=== PATIENT | female | born 1975 | race Caucasian/White ===

== ENCOUNTER → 2017-01-16 14:10 | Outpatient (CLI) | payer BC ==
[2013-11-24 06:20] VITALS: BMI 25.8
[~2017-01-16 14:10] MED LIST: BENTYL10 MG; BUMEX2 MG; CARAFATE1 G; FORTAMET1000 MG/BO; K-DUR20 MEQ OR; K-TAB10 MEQ PO; MAXZIDE-25 MG T1 TAB PO; METOPROLOL TAR100 M1 PO; METOPROLOL TAR100 MG PO; NORCO 5/325 TAB1 TA1 OR; ULTRAM50 MG PO; VITAMIN B-1000 MCG/M IM
== END | disposition home or self-care (01) ==
LOC: D.RAD 09:30
DX: M25.512 Pain in left shoulder (principal)

== ENCOUNTER → 2017-03-17 14:24 | Outpatient (CLI) | payer BC ==
[2013-11-24 06:20] VITALS: BMI 25.8
[2017-03-17 17:20] LABS: ALBUMIN 4.1 g/dL (3.4-5.0); ANION GAP 13.4 mmol/L (8-16); BILIRUBIN - TOTAL 0.73 mg/dL (0.2-1.3); CALCIUM 8.9 mg/dL (8.5-10.1); CARBON DIOXIDE 27.3 mmol/L (21.0-32.0); CREATININE - SERUM 1.5 mg/dL (0.6-1.3); POTASSIUM - SERUM 4.7 mmol/L (3.5-5.1)
[2017-03-17 17:36] LABS: PROTEIN - SERUM 7.9 g/dL (6.4-8.2)
== END | disposition home or self-care (01) ==
LOC: D.LAB 14:24
PROVIDERS: Surgery
DX: I10 Essential (primary) hypertension (principal); R60.9 Edema, unspecified; R06.02 Shortness of breath

== ENCOUNTER → 2017-03-25 12:28 | Outpatient (CLI) | payer BC ==
[2013-11-24 06:20] VITALS: BMI 25.8
== END | disposition home or self-care (01) ==
LOC: D.CT 12:28
DX: R31.9 Hematuria, unspecified (principal)

== ENCOUNTER → 2017-04-07 14:15 | Outpatient (CLI) | payer BC ==
[2013-11-24 06:20] VITALS: BMI 25.8
[~2017-04-07 14:15] MED LIST changes: +ALDACTONE50 MG PO; +FOCALIN5 MG PO; +GLUCOPHAGE1000 MG PO; +TENORMIN100 MG PO
== END | disposition home or self-care (01) ==
LOC: D.MAMMO 08:00
DX: Z12.31 Encounter for screening mammogram for malignant neoplasm of breast (principal)

== ENCOUNTER → 2017-04-24 12:07 | Outpatient (CLI) | payer BC ==
[2013-11-24 06:20] VITALS: BMI 25.8
[2017-04-24 13:23] LABS: ANION GAP 14.8 mmol/L (8-16); CALCIUM 9.5 mg/dL (8.5-10.1); CARBON DIOXIDE 23.6 mmol/L (21.0-32.0); CREATININE - SERUM 1.4 mg/dL (0.6-1.3); POTASSIUM - SERUM 4.4 mmol/L (3.5-5.1); THYROID STIMULATING HORMONE 1.13 uIU/mL (0.36-3.74)
== END | disposition home or self-care (01) ==
LOC: D.LAB 12:07
PROVIDERS: Family Medicine
DX: R60.0 Localized edema (principal)

== ENCOUNTER 2017-05-08 09:59 | Day surgery (SDC) | payer BC ==
[~2017-05-08 09:59] MED LIST changes: -ALDACTONE50 MG PO; -FOCALIN5 MG PO; -GLUCOPHAGE1000 MG PO; -TENORMIN100 MG PO
[2017-05-08 11:24] LABS: BASOPHILS 0.1 % (0-2); EOSINOPHILS 1.2 % (0-7); HEMATOCRIT 43.6 % (36.0-48.0); HEMOGLOBIN 14.3 g/dL (12-16); IMMATURE GRANULOCYTES 0.4 % (0-5); MCH 30.7 pg (26.0-34.0); MCHC 32.8 g/dL (31.0-37.0); MCV 93.6 fL (80.0-100.0); MEAN PLATELET VOLUME 10.3 fL (7.4-10.4); MONOCYTES 9.6 % (2-11); NEUTROPHILS 68.7 % (40-80); PLATELET COUNT 311 10x3/uL (130-400); RBC 4.66 10x6/uL (4.00-5.40); RDW 13.5 % (11.5-14.5)
[2017-05-08 11:33] LABS: ANION GAP 8.9 mmol/L (8-16); CALCIUM 9.4 mg/dL (8.5-10.1); CARBON DIOXIDE 29.2 mmol/L (21.0-32.0); CREATININE - SERUM 1.2 mg/dL (0.6-1.3); POTASSIUM - SERUM 4.1 mmol/L (3.5-5.1)
[2017-05-08] MEDS ORDERED: TENORMIN100 MG PO (11:33)
[2017-05-08] MEDS ORDERED: ALDACTONE50 MG PO (11:34)
[2017-05-08] MEDS ORDERED: GLUCOPHAGE1000 MG PO (11:34)
[2017-05-08] MEDS ORDERED: FOCALIN5 MG PO (11:34)
[2017-05-08 11:38] VITALS: BMI 25.3
--- NOTE | 2017-05-27 09:37 | OP ---
PATIENT NAME: SHANIQUE WARREN MEDICAL RECORD: [id number] :71 LOCATION:D.[facility] ADMISSION DATE: SURGEON: JUSTIN MILLER MD DATE OF OPERATION: 05/08/2017 SURGEON: Justin Miller MD ANESTHESIA: MAC by Colt Garcia CRNA. PREOPERATIVE DIAGNOSIS: Microscopic hematuria. POSTOPERATIVE DIAGNOSIS: Microscopic hematuria. PROCEDURE: Cystoscopy. FINDINGS: Single ureteral orifices bilaterally. Diffuse bladder inflammation, but no bladder tumors seen. BLOOD LOSS: None. CLINICAL HISTORY: This is a 41-year-old female, who has a history of diabetes mellitus type 2 and she is a former smoker. She was found to have microscopic hematuria. She had an outpatient CT scan, which showed no abnormalities of the kidney. She comes today to have cystoscopy done. She has allergies to KEFLEX, PENICILLIN, and HIBICLENS. She was given Levaquin IV cyber incident responder to the OR. DESCRIPTION OF PROCEDURE: The patient was given IV sedation. She was then placed in the dorsal lithotomy position and prepped and draped. A 17-Syriac cystoscope with 30-degree lens was used for visualization. Findings are as outlined above. No tumors were seen. The bladder was then emptied through the scope sheath and the scope was removed. Uro-Jet lidocaine jelly was inserted into the urethra afterwards. TRANSINT:[id number] Voice Confirmation ID: [id number] DOCUMENT ID: [id number] 05/27/2017 Edited clinical history per agusto Mcelroy. JUSTIN MILLER MD at 0937 CC: [id number] DICTATION DATE: 05/08/17 1242 KETTLE SKIMMER: 05/08/17 1251 [facility] 05/08/[address] [address]
== END 2017-05-08 13:44 | disposition home or self-care (01) ==
LOC: D.OPS 09:59
PROVIDERS: Anesthesiology
DX: R31.29 Other microscopic hematuria (principal); I10 Essential (primary) hypertension; E11.9 Type 2 diabetes mellitus without complications; Z01.812 Encounter for preprocedural laboratory examination

== ENCOUNTER → 2017-07-16 14:32 | Outpatient (CLI) | payer BC ==
[~2017-07-16 14:32] MED LIST changes: +ALDACTONE50 MG PO; +FOCALIN5 MG PO; +GLUCOPHAGE1000 MG PO; +TENORMIN100 MG PO
[2017-07-16 17:04] LABS: COLOR YELLOW (YELLOW)
[2017-07-16 17:05] LABS: APPEARANCE CLEAR (CLEAR); BILIRUBIN NEGATIVE (NEGATIVE); GLUCOSE NEGATIVE (NEGATIVE); KETONE NEGATIVE (NEGATIVE); NITRITE NEGATIVE (NEGATIVE); PROTEIN NEGATIVE (NEGATIVE); UROBILINOGEN NORMAL (NORMAL)
[2017-07-16 17:07] LABS: BACTERIA FEW /hpf (NONE SEEN); EPITHELIAL CELLS OCC /hpf (0-5)
== END | disposition home or self-care (01) ==
LOC: D.LAB 14:32
PROVIDERS: Family Medicine
DX: R30.0 Dysuria (principal)

== ENCOUNTER 2017-08-01 01:16 | Emergency (ER) | payer BC ==
[2017-08-01 02:19] LABS: BASOPHILS 0.3 % (0-2); EOSINOPHILS 0.8 % (0-7); HEMATOCRIT 42.6 % (36.0-48.0); HEMOGLOBIN 14.2 g/dL (12-16); IMMATURE GRANULOCYTES 0.8 % (0-5); LYMPHOCYTES 22.7 % (15-50); MCH 30.8 pg (26.0-34.0); MCHC 33.3 g/dL (31.0-37.0); MCV 92.4 fL (80.0-100.0); MEAN PLATELET VOLUME 10.7 fL (7.4-10.4); MONOCYTES 8.2 % (2-11); NEUTROPHILS 67.2 % (40-80); PLATELET COUNT 333 10x3/uL (130-400); RBC 4.61 10x6/uL (4.00-5.40); RDW 13.9 % (11.5-14.5); WBC 11.6 10x3/uL (4.8-10.8)
[2017-08-01 02:47] LABS: ANION GAP 16.3 mmol/L (8-16); BILIRUBIN - TOTAL 0.8 mg/dL (0.2-1.3); CALCIUM 9.2 mg/dL (8.5-10.1); CARBON DIOXIDE 24.7 mmol/L (21.0-32.0); CREATININE - SERUM 1.6 mg/dL (0.6-1.3); MAGNESIUM - SERUM 1.7 mg/dL (1.8-2.4); PROTEIN - SERUM 7.6 g/dL (6.4-8.2); THYROID STIMULATING HORMONE 1.52 uIU/mL (0.36-3.74)
== END 2017-08-01 04:17 | disposition home or self-care (01) ==
LOC: D.ER 01:16
PROVIDERS: Emergency Medicine
DX: R10.9 Unspecified abdominal pain (principal); E86.0 Dehydration; N17.9 Acute kidney failure, unspecified; E11.9 Type 2 diabetes mellitus without complications; I10 Essential (primary) hypertension

== ENCOUNTER 2017-08-13 06:28 | Day surgery (SDC) | payer BC ==
[2017-08-12 13:40] LABS: HCG URINE NEGATIVE (NEGATIVE)
[2017-08-12 13:46] LABS: BASOPHILS 0.4 % (0-2); EOSINOPHILS 0.6 % (0-7); HEMOGLOBIN 14.6 g/dL (12-16); IMMATURE GRANULOCYTES 0.7 % (0-5); LYMPHOCYTES 20.8 % (15-50); MCH 30.8 pg (26.0-34.0); MCHC 33.2 g/dL (31.0-37.0); MCV 92.8 fL (80.0-100.0); MEAN PLATELET VOLUME 10.6 fL (7.4-10.4); MONOCYTES 7.7 % (2-11); NEUTROPHILS 69.8 % (40-80); PLATELET COUNT 306 10x3/uL (130-400); RBC 4.74 10x6/uL (4.00-5.40); RDW 13.7 % (11.5-14.5); WBC 10.2 10x3/uL (4.8-10.8)
[2017-08-12 13:58] LABS: ANION GAP 15.4 mmol/L (8-16); CALCIUM 9.4 mg/dL (8.5-10.1); CARBON DIOXIDE 27.5 mmol/L (21.0-32.0); CREATININE - SERUM 1.4 mg/dL (0.6-1.3); POTASSIUM - SERUM 3.9 mmol/L (3.5-5.1)
[~2017-08-13] VITALS: Ht 165.1 cm; Wt 71.7 kg
--- NOTE | ~2017-08-13 | OP ---
PATIENT NAME: SHANIQUE WARREN MEDICAL RECORD: [id number] :71 LOCATION:[facility] ADMISSION DATE: SURGEON: DARRIUS FUNG MD DATE OF OPERATION: 08/13/2017 PREOPERATIVE DIAGNOSES: 1. Pelvic pain with bloating. 2. Polycystic ovary syndrome. POSTOPERATIVE DIAGNOSES: 1. Pelvic pain with bloating. 2. Polycystic ovary syndrome. PROCEDURE: Laparoscopic lysis of adhesions. SURGEON: Darrius Fung MD COSURGEON: Mahamed Sykes MD REPORT OF OPERATION: I was paged to the operating room for an intraoperative evaluation of some pelvic adhesions. Dr. Sykes had already placed two 5-mm trocars within the abdomen and insufflation had been obtained. Inspection of the pelvis looked pretty good, but on the right lower quadrant, there were some adhesions of the right colon and omentum up to the anterior abdominal wall. These adhesions were taken down with sharp dissection. In total, it took about 10 minutes to take down the adhesions. Once these were done, we were able to freely mobilize the patient's right colon and there were no further adhesions visible. There was no bleeding at the conclusion of this. At this point, I turned the case back over to Dr. Sykes. COMPLICATIONS: None. CONDITION: Stable. ANESTHESIA: General endotracheal. TRANSINT:[id number] Voice Confirmation ID: [id number] DOCUMENT ID: [id number] DARRIUS FUNG MD at 1137 CC: [id number] DICTATION DATE: 08/13/17 1405 COTTAGE CHEESE MAKER: 08/13/17 1415 [facility] 08/13/[address] [address]
--- NOTE | ~2017-08-13 | OP ---
PATIENT NAME: SHANIQUE WARREN MEDICAL RECORD: [id number] :73 LOCATION:D.[facility] ADMISSION DATE: SURGEON: CARYN SYKES MD DATE OF OPERATION: 08/13/2017 PREOPERATIVE DIAGNOSES: 1. Metrorrhagia. 2. Pelvic pain. 3. Abdominal bloating. POSTOPERATIVE DIAGNOSES: 1. Metrorrhagia. 2. Pelvic pain. 3. Abdominal bloating. PROCEDURES: 1. Operative laparoscopy and lysis of adhesions. 2. Hysteroscopy, dilation and curettage. SURGEON: Caryn Sykes MD PRE WAVE ASSEMBLER: Darrius Maza MD ANESTHESIA: General endotracheal. INTRAVENOUS FLUIDS: Per anesthesia records. HYSTEROSCOPIC FLUID LOSS: Less than 100 cc of 0.9 normal saline. FINDINGS: 1. Grossly normal-appearing external genitalia, cervix and endometrial cavity. 2. Grossly normal-appearing uterus, ovaries, bilateral Filshie clips noted on bilateral fallopian tubes. Of note, was an area of adhesive disease involving the small bowel and right abdominal wall peritoneum. Also, of note, was Aezp-Fcay-Fnckgk type adhesions involving the liver and anterior abdominal wall. COMPLICATIONS: None apparent. SPECIMENS: Endometrial curettings. PROCEDURE IN DETAIL: The patient was taken to the operating room where general anesthesia was achieved without difficulty. The patient was then prepped and draped in normal sterile fashion in the dorsal lithotomy position in the [facility]. The bladder was drained of approximately 300 cc of clear yellow urine and a sponge stick placed in the vagina for uterine elevation. Attention was then turned to the umbilicus where a 5-mm incision was made in the inferior aspect and a 5-mm bladeless trocar was used to enter the intraperitoneal space under direct visualization with the laparoscope. Following intraperitoneal placement, the introducer was removed and intraperitoneal placement was confirmed with the camera. Insufflation was performed with carbon dioxide and opening pressure was found to be less than 5 mmHg. Following insufflation, a second port was placed approximately 4 cm above the pubic symphysis in the midline. A 5-mm skin incision was made and a second 5-mm bladeless trocar was introduced into the intraperitoneal space under direct visualization of the laparoscope. Survey of the uterus, ovaries and fallopian tubes were found to be OPERATIVE REPORT [id number] SHANIQUE WARREN normal other than Filshie clips on bilateral fallopian tubes. On the right anterior abdominal wall, was an area of densely adherent small bowel. Partial dissection was performed and Dr. Darrius Maza from general surgery was called in and he proceeded to take down the small bowel adhesion. Nothing was done to be Pvwi-Tgrm-Sxjlzo adhesions involving the liver and anterior abdominal wall. All areas of dissection were found to be hemostatic. The camera was then removed and the patient was desufflated and the ports were then removed. The skin was repaired with 3-0 Vicryl in an interrupted fashion. At this point, attention was turned to the vagina, where a Graves speculum was placed in the vagina and the cervix was grasped on its anterior lip with a single tooth tenaculum. Uterus sounded to approximately 8 cm. Mild dilation was performed for approximately 5-mm using Hegar dilators. Hysteroscope was then placed into the uterus and survey was performed followed by a gentle curettage using a #1 curette. The tenaculum was then removed with good hemostasis noted from the tenaculum site. Counts were correct times 2. The patient tolerated the procedure well, transported to the postanesthesia recovery stable without incident. TRANSINT:[id number] Voice Confirmation ID: [id number] DOCUMENT ID: [id number] CARYN SYKES MD at 1541 CC: [id number] DICTATION DATE: 08/30/17 151 SHAKER REPAIRER: 08/30/172154 [facility] 08/13/[address] [address]
[~2017-08-13 06:28] MED LIST changes: +BUMEX2 MG PO; -MAXZIDE-25 MG T1 TAB PO; +TRIAMTERENE-HCT1 TA1 PO
[2017-08-13 09:20] VITALS: BP 103/69; Ht 165.1 cm; Wt 71.7 kg
== END 2017-08-13 17:20 | disposition home or self-care (01) ==
LOC: D.OPS 06:28 → D.PAN 10:00 → D.OPS 10:00
PROVIDERS: Anesthesiology; Obstetrics & Gynecology
DX: N92.1 Excessive and frequent menstruation with irregular cycle (principal); R10.2 Pelvic and perineal pain; R14.0 Abdominal distension (gaseous); I10 Essential (primary) hypertension; E11.9 Type 2 diabetes mellitus without complications; Z01.812 Encounter for preprocedural laboratory examination

== ENCOUNTER 2017-12-11 13:18 | Outpatient (CLI) | payer BC ==
[2017-12-11 15:44] LABS: ANION GAP 10.7 mmol/L (8-16); BILIRUBIN - TOTAL 0.94 mg/dL (0.2-1.3); CALCIUM 9.7 mg/dL (8.5-10.1); CARBON DIOXIDE 34.2 mmol/L (21.0-32.0); CREATININE - SERUM 1.7 mg/dL (0.6-1.3); PROTEIN - SERUM 7.7 g/dL (6.4-8.2)
[2017-12-11 15:55] LABS: POTASSIUM - SERUM 2.9 mmol/L (3.5-5.1)
[2017-12-11 16:42] LABS: ERYTHROCYTE SEDIMENTATION RATE 23 mm/hr (0-20)
[2017-12-12 08:18] LABS: IMMUNOGLOBULIN A 158 mg/dL (87-352); IMMUNOGLOBULIN G 980 mg/dL (700-1600); IMMUNOGLOBULIN M 151 mg/dL (26-217)
[2017-12-14 10:13] LABS: ANA REFLEX - DIRECT Negative (Negative)
== END 2017-12-11 23:59 ==
LOC: D.LAB 13:18
PROVIDERS: Internal Medicine Gastroenterology
DX: R10.9 Unspecified abdominal pain (principal); N18.9 Chronic kidney disease, unspecified

== ENCOUNTER → 2018-01-22 08:22 | Outpatient (CLI) | payer BC ==
[~2018-01-22 08:22] MED LIST changes: +COLCRYS0.6 MG PO
[2018-01-22 09:33] LABS: APPEARANCE CLEAR (CLEAR); BACTERIA FEW /hpf (NONE SEEN); BILIRUBIN NEGATIVE (NEGATIVE); COLOR STRAW (YELLOW); GLUCOSE NEGATIVE (NEGATIVE); KETONE NEGATIVE (NEGATIVE); NITRITE NEGATIVE (NEGATIVE); PROTEIN NEGATIVE (NEGATIVE); RED CELLS - URINE 0-5 /hpf (0-5); SPECIFIC GRAVITY 1.005 (1.005-1.020); UROBILINOGEN NORMAL (NORMAL)
[2018-01-22 09:41] LABS: ANION GAP 9.3 mmol/L (8-16); CALCIUM 9.3 mg/dL (8.5-10.1); CARBON DIOXIDE 37.2 mmol/L (21.0-32.0); CREATININE - SERUM 1.1 mg/dL (0.6-1.3); MAGNESIUM - SERUM 1.6 mg/dL (1.8-2.4); POTASSIUM - SERUM 3.5 mmol/L (3.5-5.1); URIC ACID 11.5 mg/dL (2.6-7.2)
[2018-01-24 17:06] LABS: POTASSIUM - URINE 17.5 MMOL/L (12.0-62.0)
[2018-01-24 17:07] LABS: NA - URINE 100 MMOL/L (20-110)
[2018-01-24 17:09] LABS: NA - 24HR 370 mmol/24h (40-220)
[2018-01-25 13:13] LABS: OSMOLALITY - URINE 302 (())
[2018-01-25 18:10] LABS: UPE RAND - ALPHA 1 GLOBULIN 5.1 % (()); UPE RAND - ALPHA 2 GLOBULIN 13.1 % (()); UPE RAND - BETA GLOBULIN 16.1 % (()); UPE RAND - GAMMA GLOBULIN 10.7 % (())
[2018-01-25 18:10] LABS: SPE - ALBUMIN 3.9 g/dL (2.9-4.4); SPE - ALPHA-1 GLOBULIN 0.2 g/dL (0.0-0.4); SPE - ALPHA-2 GLOBULIN 0.9 g/dL (0.4-1.0); SPE - BETA GLOBULIN 1.3 g/dL (0.7-1.3); SPE - GAMMA GLOBULIN 1.5 g/dL (0.4-1.8); SPE - M-SPIKE Not Observed g/dL (Not Observed); SPE - TOTAL PROTEIN 7.8 g/dL (6.0-8.5)
[2018-01-26 11:21] LABS: URIC ACID - 24HR (TOTAL) 381.1 mg/24 hr (250.0-750.0); URIC ACID - 24HR (URINE) 10.3 mg/dL (Not Estab.)
[2018-01-27 11:24] LABS: RENIN ACTIVITY - PLASMA 1.363 ng/mL/hr (0.167-5.380)
[2018-01-28 12:19] LABS: ALDOSTERONE 204.9 ng/dL (0.0-30.0)
== END | disposition home or self-care (01) ==
LOC: D.LAB 08:22
PROVIDERS: Nurse Practitioner Family
DX: I12.9 Hypertensive chronic kidney disease with stage 1 through stage 4 chronic kidney disease, or unspecified chronic kidney disease (principal); N18.3 Chronic kidney disease, stage 3 (moderate); E87.6 Hypokalemia; R60.9 Edema, unspecified

== ENCOUNTER 2018-01-24 21:01 | Emergency (ER) | payer BC ==
[~2018-01-24] VITALS: Ht 165.1 cm; Wt 72.6 kg
[~2018-01-24 21:01] MED LIST changes: -COLCRYS0.6 MG PO
[2018-01-24 21:18] VITALS: Ht 165.1 cm; Wt 72.6 kg
[2018-01-24 21:55] LABS: BASOPHILS 0.4 % (0-2); EOSINOPHILS 0.6 % (0-7); HEMATOCRIT 41.4 % (36.0-48.0); HEMOGLOBIN 13.7 g/dL (12-16); IMMATURE GRANULOCYTES 0.8 % (0-5); LYMPHOCYTES 19.5 % (15-50); MCH 32.5 pg (26.0-34.0); MCHC 33.1 g/dL (31.0-37.0); MCV 98.1 fL (80.0-100.0); MEAN PLATELET VOLUME 10.8 fL (7.4-10.4); MONOCYTES 10.4 % (2-11); NEUTROPHILS 68.3 % (40-80); PLATELET COUNT 321 10x3/uL (130-400); RBC 4.22 10x6/uL (4.00-5.40); RDW 13.2 % (11.5-14.5); WBC 12.3 10x3/uL (4.8-10.8)
[2018-01-24 22:18] LABS: ALBUMIN 3.5 g/dL (3.4-5.0); ANION GAP 8.7 mmol/L (8-16); BILIRUBIN - TOTAL 0.52 mg/dL (0.2-1.3); CALCIUM 8.6 mg/dL (8.5-10.1); CARBON DIOXIDE 33.6 mmol/L (21.0-32.0); CREATININE - SERUM 1.2 mg/dL (0.6-1.3); POTASSIUM - SERUM 3.3 mmol/L (3.5-5.1); PROTEIN - SERUM 7.3 g/dL (6.4-8.2)
[2018-01-24] MEDS ORDERED: COLCRYS0.6 MG PO (23:30)
[2018-01-24 23:40] VITALS: BP 123/82
== END 2018-01-24 23:40 | disposition home or self-care (01) ==
LOC: D.ER 21:01
PROVIDERS: Family Medicine
DX: M10.9 Gout, unspecified (principal); I10 Essential (primary) hypertension

== ENCOUNTER → 2018-04-22 10:31 | Outpatient (CLI) | payer BC ==
[~2018-04-22 10:31] MED LIST changes: +COLCRYS0.6 MG PO
[2018-04-22 13:32] LABS: CREATININE - SERUM 1.6 mg/dL (0.6-1.3)
== END | disposition home or self-care (01) ==
LOC: D.CT 10:31
PROVIDERS: Obstetrics & Gynecology
DX: R18.8 Other ascites (principal)

== ENCOUNTER → 2018-05-12 06:54 | Outpatient (CLI) | payer BC ==
[~2018-05-12 06:54] MED LIST changes: +SLOW MAG 71.5 MG
== END | disposition home or self-care (01) ==
LOC: D.MRI 06:54
DX: R16.0 Hepatomegaly, not elsewhere classified (principal); D35.2 Benign neoplasm of pituitary gland

== ENCOUNTER → 2018-05-14 06:58 | Outpatient (CLI) | payer BC | END | disposition home or self-care (01) | LOC: D.MRI 06:58 | DX: R16.0 Hepatomegaly, not elsewhere classified (principal) ==

== ENCOUNTER → 2018-05-25 20:32 | Outpatient (CLI) | payer BC ==
[~2018-05-25 20:32] MED LIST changes: -SLOW MAG 71.5 MG
== END | disposition home or self-care (01) ==
LOC: D.MAMMO 15:45
DX: Z12.31 Encounter for screening mammogram for malignant neoplasm of breast (principal)

== ENCOUNTER → 2018-06-01 14:23 | Outpatient (CLI) | payer BC ==
[~2018-06-01 14:23] MED LIST changes: +SLOW MAG 71.5 MG
[2018-06-01 15:25] LABS: CALCIUM 9.3 mg/dL (8.5-10.1); CARBON DIOXIDE 31.6 mmol/L (21.0-32.0); CREATININE - SERUM 1.3 mg/dL (0.6-1.3); POTASSIUM - SERUM 3.6 mmol/L (3.5-5.1)
== END | disposition home or self-care (01) ==
LOC: D.LAB 14:23
PROVIDERS: Internal Medicine Gastroenterology
DX: E87.6 Hypokalemia (principal)

== ENCOUNTER 2018-06-02 10:15 | Day surgery (SDC) | payer BC ==
[~2018-06-02] VITALS: Ht 165.1 cm; Wt 68.2 kg
--- NOTE | ~2018-06-02 | OP ---
PATIENT NAME: SHANIQUE WARREN MEDICAL RECORD: [id number] :71 [facility] AD[facility] DATE: SURGEON: SHANA LUO DO DATE OF OPERATION: 06/02/2018 PROCEDURE: EGD with biopsies and colonoscopy with cold forceps polypectomy and endoclipping. INDICATIONS FOR PROCEDURE: Generalized abdominal pain, constipation, gas and bloating, heartburn. SCOPE: Olympus video gastroscope and Olympus video pediatric colonoscope. MEDICATIONS: Propofol 550 mg IV per anesthesia. WITHDRAWAL TIME: 23 minutes. ESTIMATED BLOOD LOSS: Minimal. COMPLICATIONS: None. FINDINGS: Informed consent was given. The patient was made comfortable with the above medication. After reaching an adequate level of sedation by slow IV push, the patient was placed on her left side. The endoscope was advanced under direct visualization through the mouth to the third portion of the duodenum. The upper, middle, and lower thirds of the esophagus appeared normal. At the GE junction, there was mild evidence of LA class A reflux-induced esophagitis. The endoscope was advanced beyond the GE junction into the stomach and retroflexed to view the cardia, which appeared normal. The fundus and proximal body of the stomach appeared normal as well. In the antrum, there was a large, cratered, ulceration with an exudative base, which was clean. The ulcer measured approximately 1.5 cm in size. The surrounding mucosa was erythematous and granular. Cold forceps, biopsies were taken from the ulcer edge as well as the abnormal appearing mucosa. These biopsies will be submitted for histopathology and to rule out the presence of H. pylori. The endoscope was advanced beyond the pylorus into the duodenum. The entire examined duodenum appeared normal. Random cold forceps biopsies were taken in each of the first, second, and third portion of the duodenum. The endoscope was withdrawn from the patient. The patient was turned for colonoscopy. A digital rectal examination was performed and was normal. The endoscope was then advanced under direct visualization through the rectum to the terminal ileum and cecum. The endoscope was slowly withdrawn and mucosa was carefully examined. The prep quality was good. There was a single benign appearing sessile polyp, which measured approximately 3 mm in diameter located in the transverse colon. The polyp was removed using cold forceps. After the polyp was removed, there was some oozing of blood, which was not stopping on its own. For hemostasis measures 2 endoclips were placed successfully over the site. There were no diverticula visualized on today's examination. There were no other abnormalities within the colon. Retroflexion was performed in the rectum with visualization of a normal appearing rectal wall. The endoscope was withdrawn from the patient. The patient tolerated the procedure well and there were no complications. IMPRESSION: 1. LA class A reflux-induced esophagitis. 2. Gastritis. OPERATIVE REPORT [id number] KELVINCJJerry 3. Gastric ulcer located in the antrum of the stomach. 4. A single benign-appearing polyp located in the transverse colon, which was removed and endoclipped times 2. PLAN AND RECOMMENDATIONS: 1. Discharge home when recovery parameters are met. 2. Follow up biopsy specimen results. 3. GERD diet and reflux precautions. 4. We will initiate a PPI at 40 mg equivalent daily times 60 days and start Carafate 1 gram t.i.d. times 2 weeks. 5. Okay to use a histamine audra such as Pepcid or Zantac q.h.s. p.r.n. breakthrough reflux symptoms or abdominal pain. 6. The patient will need a recall colonoscopy in 5 years for removal of this polyp. 7. Follow up in GI clinic in 2-4 weeks. 8. Regarding the patient's imaging of her liver, she is scheduled for an MRI of the abdomen with and without contrast utilizing a hepatobiliary specific contrast. Of note, the highest things on the differential for her liver lesion is focal nodular hyperplasia and a hepatic adenoma, both of which are benign findings. TRANSINT:[id number] Voice Confirmation ID: [id number] DOCUMENT ID: [id number] SHANA LUO DO at 0800 CC: [id number] DICTATION DATE: 06/02/18 1257 SECONDARY EDUCATION PROFESSOR: 06/02/18 1452 [facility] 06/02/18 [place] [id number] [place] [id number]
[~2018-06-02 10:15] MED LIST changes: -SLOW MAG 71.5 MG
[2018-06-02] MEDS ORDERED: SLOW MAG 71.5 MG (10:37)
[2018-06-02 11:11] VITALS: BP 118/71; Ht 165.1 cm; Wt 68.2 kg
[2018-06-02 11:21] LABS: BASOPHILS 0.3 % (0-2); EOSINOPHILS 0.4 % (0-7); HEMATOCRIT 41.2 % (36.0-48.0); HEMOGLOBIN 13.5 g/dL (12-16); IMMATURE GRANULOCYTES 0.4 % (0-5); LYMPHOCYTES 21.4 % (15-50); MCH 32.3 pg (26.0-34.0); MCHC 32.8 g/dL (31.0-37.0); MCV 98.6 fL (80.0-100.0); MEAN PLATELET VOLUME 11.4 fL (7.4-10.4); MONOCYTES 10.6 % (2-11); NEUTROPHILS 66.9 % (40-80); PLATELET COUNT 276 10x3/uL (130-400); RBC 4.18 10x6/uL (4.00-5.40); RDW 14.3 % (11.5-14.5); WBC 7.6 10x3/uL (4.8-10.8)
== END 2018-06-02 14:02 | disposition home or self-care (01) ==
LOC: D.OPS 10:15
PROVIDERS: Anesthesiology
DX: K63.5 Polyp of colon (principal); K21.0 Gastro-esophageal reflux disease with esophagitis; K29.00 Acute gastritis without bleeding; K91.61 Intraoperative hemorrhage and hematoma of a digestive system organ or structure complicating a digestive system procedure; Y83.8 Other surgical procedures as the cause of abnormal reaction of the patient, or of later complication, without mention of misadventure at the time of the procedure; K59.00 Constipation, unspecified

== ENCOUNTER 2018-06-17 08:00 | Outpatient (CLI) | payer BC ==
[2018-06-02 11:11] VITALS: BMI 25.0
[~2018-06-17 08:00] MED LIST changes: +SLOW MAG 71.5 MG
== END 2018-06-17 09:00 | disposition home or self-care (01) ==
LOC: D.MAMMO 08:00
DX: R92.8 Other abnormal and inconclusive findings on diagnostic imaging of breast (principal)

== ENCOUNTER → 2018-06-25 07:43 | Outpatient (CLI) | payer BC ==
[2018-06-02 11:11] VITALS: BMI 25.0
== END | disposition home or self-care (01) ==
LOC: D.MRI 07:43
DX: R93.89 Abnormal findings on diagnostic imaging of other specified body structures (principal); K76.9 Liver disease, unspecified

== ENCOUNTER → 2018-07-30 10:09 | Outpatient (CLI) | payer BC ==
[2018-06-02 11:11] VITALS: BMI 25.0
[~2018-07-30 10:09] MED LIST changes: +CARAFATE1 G PO; +PROTONIX40 MG PO; +VITAMIN D10000 UNI1 PO
[2018-07-30 11:10] LABS: ANION GAP 13.4 mmol/L (8-16); CALCIUM 9.2 mg/dL (8.5-10.1); CARBON DIOXIDE 29.2 mmol/L (21.0-32.0); CREATININE - SERUM 1.2 mg/dL (0.6-1.3); POTASSIUM - SERUM 3.6 mmol/L (3.5-5.1); URIC ACID 11.8 mg/dL (2.6-7.2)
== END | disposition home or self-care (01) ==
LOC: D.LAB 10:09
PROVIDERS: Family Medicine
DX: M25.50 Pain in unspecified joint (principal)

== ENCOUNTER 2018-08-04 06:04 | Day surgery (SDC) | payer BC ==
[~2018-08-04] VITALS: Ht 165.1 cm; Wt 66.4 kg
[~2018-08-04 06:04] MED LIST changes: -CARAFATE1 G PO; -PROTONIX40 MG PO; -VITAMIN D10000 UNI1 PO
[2018-08-04] MEDS ORDERED: PROTONIX40 MG PO (06:49)
[2018-08-04] MEDS ORDERED: CARAFATE1 G PO (06:50)
[2018-08-04] MEDS ORDERED: VITAMIN D10000 UNI1 PO (06:50)
[2018-08-04 07:03] VITALS: BP 100/57; Ht 165.1 cm; Wt 66.4 kg
[2018-08-04 07:33] LABS: HEMOGLOBIN 13.2 g/dL (12-16); MCH 31.5 pg (26.0-34.0); MCHC 33.8 g/dL (31.0-37.0); MCV 93.1 fL (80.0-100.0); MEAN PLATELET VOLUME 11.1 fL (7.4-10.4); RBC 4.19 10x6/uL (4.00-5.40); RDW 14.7 % (11.5-14.5); WBC 7.3 10x3/uL (4.8-10.8)
[2018-08-04 07:51] LABS: ANION GAP 17.9 mmol/L (8-16); CALCIUM 8.7 mg/dL (8.5-10.1); CARBON DIOXIDE 21.6 mmol/L (21.0-32.0); CREATININE - SERUM 1.1 mg/dL (0.6-1.3)
[2018-08-04 07:55] LABS: POTASSIUM - SERUM 2.5 mmol/L (3.5-5.1)
--- NOTE | 2018-08-04 12:17 | OP ---
PATIENT NAME: SHANIQUE WARREN MEDICAL RECORD: [id number] :71 LOCATION:[facility] ADMISSION DATE: SURGEON: SHANA LUO DO DATE OF OPERATION: 08/04/2018 PROCEDURE: EGD with biopsies. INDICATIONS FOR PROCEDURE: History of acute gastric ulcer as well as upper abdominal pain, heartburn, nausea, gas and bloating. SCOPE: Olympus video gastroscope. MEDICATIONS: Propofol 160 mg IV per anesthesia. ESTIMATED BLOOD LOSS: Minimal. COMPLICATIONS: None. FINDINGS: Informed consent was given. The patient was made comfortable with the above medication. After reaching an adequate level of sedation by slow IV push, the patient was placed on her left side. The endoscope was advanced under direct visualization through the mouth to the second portion of the duodenum. The upper, middle, and lower thirds of the esophagus appeared normal. At the GE junction, there were mild changes consistent with LA class A reflux-induced esophagitis. The endoscope was advanced beyond the GE junction into the stomach where a large amount of food retention was encountered. There was a significant amount of food in all portions of the stomach. Retroflexion was performed with visualization of a normal cardia and fundus. There was a significant amount of mucosa that could not be visualized in the stomach, but the site where the previous ulcer was identified appeared to be healing. There was some patchy erythema and granularity consistent with gastritis as well as what appeared to be an old scar from the healed gastric ulcer. Random cold forceps biopsies were taken to submit for histopathology and to rule out the presence of H. pylori. The endoscope was advanced beyond the pylorus into the duodenum, which appeared normal to the second portion. Random cold forceps biopsies were taken to submit for histopathology. The endoscope was withdrawn from the patient. The patient tolerated the procedure well and there were no complications. IMPRESSION: 1. LA class A reflux-induced esophagitis. 2. Gastritis without ulcers present. 3. Significant food retention consistent with gastroparesis. PLAN AND RECOMMENDATIONS: 1. Discharge home when recovery parameters are met. 2. Follow up biopsy specimen results. 3. GERD diet and reflux precautions as well as smaller frequent meals that are low in fatty content and insoluble fiber regarding the gastroparesis. 4. Consider gastric emptying scan for confirmation of diagnosis. 5. Consider trial of Reglan 5 mg a.c. and h.s. regarding symptoms. TRANSINT:[id number] Voice Confirmation ID: [id number] DOCUMENT ID: [id number] OPERATIVE REPORT [id number] SHANIQUE WARREN NATHAN A DO at 1217 CC: [id number] DICTATION DATE: 08/04/18 0750 TOP LIFTER: 08/04/18 1145 [facility] 08/04/18 [place] [id number] [place] [id number]
== END 2018-08-04 09:00 | disposition home or self-care (01) ==
LOC: D.OPS 06:04
PROVIDERS: Anesthesiology
DX: R10.9 Unspecified abdominal pain (principal); R11.0 Nausea; R14.3 Flatulence; K21.0 Gastro-esophageal reflux disease with esophagitis; K29.70 Gastritis, unspecified, without bleeding; Z01.812 Encounter for preprocedural laboratory examination

== ENCOUNTER → 2018-11-12 15:43 | Outpatient (CLI) | payer BC ==
[2018-08-04 07:03] VITALS: BMI 24.3
[~2018-11-12 15:43] MED LIST changes: +CARAFATE1 G PO; +PROTONIX40 MG PO; +VITAMIN D10000 UNI1 PO
[2018-11-12 16:29] LABS: ANION GAP 15.5 mmol/L (8-16); CALCIUM 9.3 mg/dL (8.5-10.1); CREATININE - SERUM 2.1 mg/dL (0.6-1.3); MAGNESIUM - SERUM 1.9 mg/dL (1.8-2.4); POTASSIUM - SERUM 3.5 mmol/L (3.5-5.1); URIC ACID 10.1 mg/dL (2.6-7.2)
== END | disposition home or self-care (01) ==
LOC: D.LAB 15:43
PROVIDERS: ATTEND Family Medicine
DX: M10.00 Idiopathic gout, unspecified site (principal); I10 Essential (primary) hypertension; I87.2 Venous insufficiency (chronic) (peripheral)

== ENCOUNTER → 2018-12-24 20:54 | Outpatient (CLI) | payer BC ==
[2018-08-04 07:03] VITALS: BMI 24.3
[2018-12-24 21:18] LABS: BASOPHILS 0.3 % (0-2); EOSINOPHILS 0.7 % (0-7); HEMATOCRIT 38.4 % (36.0-48.0); HEMOGLOBIN 12.6 g/dL (12-16); IMMATURE GRANULOCYTES 0.7 % (0-5); LYMPHOCYTES 21.1 % (15-50); MCH 30.3 pg (26.0-34.0); MCHC 32.8 g/dL (31.0-37.0); MCV 92.3 fL (80.0-100.0); MEAN PLATELET VOLUME 10.9 fL (7.4-10.4); MONOCYTES 9.1 % (2-11); NEUTROPHILS 68.1 % (40-80); PLATELET COUNT 275 10x3/uL (130-400); RBC 4.16 10x6/uL (4.00-5.40); RDW 14.8 % (11.5-14.5); WBC 10.8 10x3/uL (4.8-10.8)
[2018-12-24 21:34] LABS: ALBUMIN 3.7 g/dL (3.4-5.0); ANION GAP 14.7 mmol/L (8-16); BILIRUBIN - TOTAL 0.44 mg/dL (0.2-1.3); CALCIUM 9.1 mg/dL (8.5-10.1); CARBON DIOXIDE 25.7 mmol/L (21.0-32.0); CREATININE - SERUM 1.4 mg/dL (0.6-1.3); POTASSIUM - SERUM 3.4 mmol/L (3.5-5.1); PROTEIN - SERUM 7.4 g/dL (6.4-8.2); URIC ACID 4.8 mg/dL (2.6-7.2)
== END | disposition home or self-care (01) ==
LOC: D.LABREF 20:54
PROVIDERS: ATTEND Urology
DX: I12.9 Hypertensive chronic kidney disease with stage 1 through stage 4 chronic kidney disease, or unspecified chronic kidney disease (principal); N18.9 Chronic kidney disease, unspecified; R63.5 Abnormal weight gain; R60.9 Edema, unspecified

== ENCOUNTER → 2019-01-03 12:29 | Outpatient (CLI) | payer BC ==
[2018-08-04 07:03] VITALS: BMI 24.3
[2019-01-03 21:13] LABS: MACROPHAGES BF 28 %; NEUT - BF 65 %
== END | disposition home or self-care (01) ==
LOC: D.LABREF 12:29
PROVIDERS: ATTEND Orthopaedic Surgery
DX: M25.561 Pain in right knee (principal)

== ENCOUNTER 2019-01-18 03:03 | Emergency (ER) | payer BC ==
[~2019-01-18] VITALS: Ht 165.1 cm; Wt 72.7 kg
[2019-01-18 03:09] VITALS: Ht 165.1 cm; Wt 72.7 kg
[2019-01-18] MEDS ORDERED: ALDACTONE50 MG PO (03:13)
[2019-01-18] MEDS ORDERED: COMBIVENT RESPIM4 GM INH (03:14)
[2019-01-18] MEDS ORDERED: LINZESS290 MCG PO (03:14)
[2019-01-18] MEDS ORDERED: ULTRAM50 MG PO (03:44)
[2019-01-18 04:10] VITALS: BP 118/75
== END 2019-01-18 04:10 | disposition home or self-care (01) ==
LOC: D.ER 03:03
DX: M23.91 Unspecified internal derangement of right knee (principal)

== ENCOUNTER → 2019-01-18 10:20 | Outpatient (CLI) | payer BC ==
[2019-01-18 03:09] VITALS: BMI 26.6
[~2019-01-18 10:20] MED LIST changes: +COMBIVENT RESPIM4 GM INH; +LINZESS290 MCG PO
== END | disposition home or self-care (01) ==
LOC: D.MRI 10:20
PROVIDERS: ATTEND Orthopaedic Surgery
DX: M25.661 Stiffness of right knee, not elsewhere classified (principal)

== ENCOUNTER 2019-02-18 05:10 | Day surgery (SDC) | payer BC ==
[2019-02-16 13:56] LABS: BASOPHILS 0.1 % (0-2); EOSINOPHILS 0.1 % (0-7); HEMATOCRIT 39.8 % (36.0-48.0); HEMOGLOBIN 13.7 g/dL (12-16); IMMATURE GRANULOCYTES 1.1 % (0-5); LYMPHOCYTES 14.6 % (15-50); MCH 30.8 pg (26.0-34.0); MCHC 34.4 g/dL (31.0-37.0); MCV 89.4 fL (80.0-100.0); MEAN PLATELET VOLUME 10.5 fL (7.4-10.4); MONOCYTES 8.9 % (2-11); NEUTROPHILS 75.2 % (40-80); RBC 4.45 10x6/uL (4.00-5.40); RDW 14.4 % (11.5-14.5); WBC 14.4 10x3/uL (4.8-10.8)
[2019-02-16 14:03] LABS: PLATELET COUNT 342 10x3/uL (130-400)
[2019-02-16 14:10] LABS: APTT 28.6 SECONDS (22.8-39.4); INR 0.98 (0.85-1.17); PROTIME 12.5 SECONDS (11.6-15.0)
[2019-02-16 14:15] LABS: ANION GAP 14.6 mmol/L (8-16); CALCIUM 9.4 mg/dL (8.5-10.1); CARBON DIOXIDE 24.9 mmol/L (21.0-32.0); CREATININE - SERUM 1.4 mg/dL (0.6-1.3); POTASSIUM - SERUM 3.5 mmol/L (3.5-5.1)
[~2019-02-18] VITALS: Ht 165.1 cm; Wt 72.7 kg
[2019-02-18] MEDS ORDERED: ATROVENT (05:17)
[2019-02-18 05:32] VITALS: BP 127/81; Ht 165.1 cm; Wt 72.7 kg
[2019-02-18] MEDS ORDERED: OXYCODONE HCL5 M1 PO (08:22)
--- NOTE | 2019-02-18 13:01 | OP ---
PATIENT NAME: RIMA WARREN MEDICAL RECORD: [id number] :71 LOCATION:[facility] ADMISSION DATE: SURGEON: MAHAMED ABREU DO DATE OF OPERATION: 02/18/2019 PROCEDURE PERFORMED: Right knee arthroscopy with synovectomy. PREOPERATIVE DIAGNOSIS: Right knee nodular synovitis. POSTOPERATIVE DIAGNOSIS: Right knee nodular synovitis. INDICATIONS: Ms. Warren is a 43-year-old female, who has had right knee pain and swelling for quite some time. She underwent an aspirate, which did not show any infection or gout, but she does have a history of gout. MRI demonstrated nodular synovitis. It was swelling on her, going down, swelling and going down. She did respond to steroids and did give her an injection in the knee, which did help for some time. She has responded to Medrol Dosepak. She is tired of dealing with it and got the MRI, which showed a nodular synovitis. Told her we will scope the knee, take out the synovium, and get a biopsy and see what it was. She was okay with that. She is aware of the risk of blood clots, bleeding, damage to nerves and vessels, need for further surgery, even , and infection. She has signed the consent. SURGEON: Mahamed Abreu DO DESCRIPTION OF PROCEDURE: The patient was given 900 mg of clindamycin prior to the operation. She was given a block by anesthesia and taken to the operative suite, laid in supine position, given general anesthetic and LMA was placed. The right lower extremity was then prepped with Betadine and then draped. A time-out was performed. Everyone was in agreement with the correct side, site, patient and procedure. The procedure then began starting in the lateral portal with an 11-blade scalpel. Trocar was then entered into the knee joint. The camera was then entered and the synovitis was noted as well as what appeared to be a tophi from gout, several white specks over the entire knee almost. There were some loose bodies and 2 biopsies were taken of the synovium and loose body as well and then a synovectomy was performed with afshan. The tourniquet was inflated, right lower extremity was exsanguinated with an Esmarch prior to starting. A tourniquet was inflated to 350 mmHg, was up for 31 minutes. Once the synovectomy was done, the menisci were inspected as well as the ACL. Everything was intact except for the gouty tophi looking knee. There was some chondromalacia seen on the patella, but not full thickness. Once the procedure was completed, the water was turned off and the suction was turned on. Excess fluid was taken out of the knee, and the portal sites were closed with 4-0 Monocryl in inverted interrupted fashion. Steri-Strips, Adaptic, 4 x 4, ABD, Webril, and Tony wrap were then placed on the knee, KIRA hose stocking up to the knee. She was awakened and taken to recovery in stable condition. BLOOD LOSS: Minimal. COMPLICATIONS: None. TRANSINT:[id number] Voice Confirmation ID: [id number] DOCUMENT ID: [id number] OPERATIVE REPORT [id number] RIMA WARREN,MAHAMED Noel DO at 1301 CC: [id number] DICTATION DATE: 02/18/19814 GRADING SUPERVISOR: 02/18/19 0913 [facility] 02/18/19 [facility] [address] [place] [address]
== END 2019-02-18 10:50 | disposition home or self-care (01) ==
LOC: D.OPS 05:10 → D.PAN 13:00 → D.OPS 13:00 → D.PAN 17:10 → D.OPS 17:45 → D.PAN 17:45
PROVIDERS: Anesthesiology; ATTEND Orthopaedic Surgery
DX: M65.861 Other synovitis and tenosynovitis, right lower leg (principal); Z01.812 Encounter for preprocedural laboratory examination

== ENCOUNTER → 2019-03-07 16:34 | Outpatient (CLI) | payer BC ==
[2019-02-18 05:32] VITALS: BMI 26.6
[~2019-03-07 16:34] MED LIST changes: +ATROVENT; +OXYCODONE HCL5 M1 PO
[2019-03-07 17:03] LABS: CREATININE - URINE 38.3 mg/dL (30-125)
[2019-03-08 16:17] LABS: NA - URINE 85 MMOL/L (20-110)
[2019-03-08 16:21] LABS: NA - 24HR 204 mmol/24h (40-220)
[2019-03-11 03:07] LABS: CORTISOL FREE - 24HR 17 ug/24 hr (6-42); CORTISOL FREE - UR 7 ug/L (Undefined)
[2019-03-12 03:07] LABS: ALDOSTERONE - 24HR 11.95 ug/24 hr (0.00-19.00); ALDOSTERONE - UR 4.98 ug/L (Not Estab.)
[2019-03-21 17:11] LABS: METAN - URINE 69
[2019-03-21 17:12] LABS: METAN - URINE 24HR 166
== END | disposition home or self-care (01) ==
LOC: D.LAB 16:34
PROVIDERS: ATTEND Internal Medicine Endocrinology, Diabetes & Metabolism
DX: D49.7 Neoplasm of unspecified behavior of endocrine glands and other parts of nervous system (principal)

== ENCOUNTER → 2019-04-13 10:20 | Outpatient (CLI) | payer BC ==
[2019-02-18 05:32] VITALS: BMI 26.6
== END | disposition home or self-care (01) ==
LOC: D.MRI 10:20
PROVIDERS: ATTEND Internal Medicine Endocrinology, Diabetes & Metabolism
DX: Z86.39 Personal history of other endocrine, nutritional and metabolic disease (principal)

== ENCOUNTER 2019-05-11 08:00 | Outpatient (CLI) | payer BC ==
[2019-02-18 05:32] VITALS: BMI 26.6
== END 2019-05-11 08:01 | disposition home or self-care (01) ==
LOC: D.US 08:00
PROVIDERS: ATTEND Internal Medicine Gastroenterology
DX: R93.5 Abnormal findings on diagnostic imaging of other abdominal regions, including retroperitoneum (principal); R93.2 Abnormal findings on diagnostic imaging of liver and biliary tract

== ENCOUNTER → 2019-05-23 13:48 | Outpatient (CLI) | payer BC ==
[2019-02-18 05:32] VITALS: BMI 26.6
[2019-05-23 15:05] LABS: ANION GAP 14.3 mmol/L (8-16); BILIRUBIN - TOTAL 1.05 mg/dL (0.2-1.3); CALCIUM 9.2 mg/dL (8.5-10.1); CARBON DIOXIDE 27.1 mmol/L (21.0-32.0); CREATININE - SERUM 1.1 mg/dL (0.6-1.3); MAGNESIUM - SERUM 1.5 mg/dL (1.8-2.4); POTASSIUM - SERUM 4.4 mmol/L (3.5-5.1); PROTEIN - SERUM 7.8 g/dL (6.4-8.2); URIC ACID 4.3 mg/dL (2.6-7.2)
[2019-05-24 07:13] LABS: ESTRADIOL 81.3 pg/mL (())
[2019-05-27 12:08] LABS: ESTRONE, SERUM QNS pg/mL (())
[2019-06-02 14:09] LABS: ESTRONE, SERUM 199 pg/mL (())
== END | disposition home or self-care (01) ==
LOC: D.LDO 13:48
PROVIDERS: ATTEND Obstetrics & Gynecology
DX: I10 Essential (primary) hypertension (principal); N91.2 Amenorrhea, unspecified; E87.6 Hypokalemia; R19.00 Intra-abdominal and pelvic swelling, mass and lump, unspecified site

== ENCOUNTER → 2019-06-03 11:48 | Outpatient (CLI) | payer BC ==
[2019-02-18 05:32] VITALS: BMI 26.6
== END | disposition home or self-care (01) ==
LOC: D.US 11:48
PROVIDERS: ATTEND Obstetrics & Gynecology
DX: R10.2 Pelvic and perineal pain (principal)

== ENCOUNTER → 2019-09-09 13:04 | Outpatient (CLI) | payer BC ==
[2019-02-18 05:32] VITALS: BMI 26.6
== END | disposition home or self-care (01) ==
LOC: D.US 13:04
PROVIDERS: ATTEND Family Medicine
DX: E04.9 Nontoxic goiter, unspecified (principal)

== ENCOUNTER → 2019-10-03 11:38 | Outpatient (CLI) | payer BC ==
[2019-02-18 05:32] VITALS: BMI 26.6
== END | disposition home or self-care (01) ==
LOC: D.MAMMO 10:00
PROVIDERS: ATTEND Family Medicine
DX: R92.8 Other abnormal and inconclusive findings on diagnostic imaging of breast (principal)